=== PATIENT | male | born 1970 | race African-American/Black ===

== ENCOUNTER 2024-10-31 08:43 | Day surgery (SDC) | payer OTHER, SELFPAY ==
[2024-10-29 13:42] VITALS: BMI 27.5
[2024-10-29 14:00] LABS: Hematocrit 41.9 % (39.0-52.0); Hemoglobin 14.1 g/dL (13.0-18.0); Mean Corp Hgb Conc. 33.7 g/dL (33.0-37.0); Mean Corpuscular Volume 88.2 fL (80.0-94.0); Nucleated Red Blood Cells % 0 % (-); Platelet Count 323 10^3/uL (130-400); Red Cell Dist. Width 11.9 % (11.5-14.5)
[2024-10-29 14:16] LABS: ALT (SGPT) 30 U/L (0-50); AST (SGOT) 18 U/L (17-59); Albumin 4.6 g/dl (3.5-5.0); Alkaline Phosphatase 86 U/L (38-126); Blood Urea Nitrogen 16 mg/dl (9-20); Calcium 9.7 mg/dl (8.4-10.2); Carbon Dioxide 26 mmol/L (22-30); Chloride 104 mmol/L (98-107); Estimated Creatinine Clearance 75 ml/min; Glucose 243 mg/dl (70-99); Potassium 4.4 mmol/L (3.5-5.1); Sodium 138 mmol/L (135-145); Total Protein 8.2 g/dl (6.3-8.2); eGFR > 60.00
[2024-10-31] VITALS (15 sets, daily range): BP systolic 106–123; BP diastolic 62–86
[2024-10-31 09:29] LABS: Glucose - Point of Care 265 mg/dl (70-99)
--- NOTE | 2024-10-31 10:34 | W.DS.TRANS ---
DC Summary - [facility]
-
Discharge Instructions:
Discharge Diagnosis/Procedures Cardiac catheterization.
Diet Low Fat,Low Cholesterol,2 Gram Sodium
Activity No restrictions
Driving Restrictions No driving for 24 hours
Bathing Restrictions None
Instructions:
Stand-Alone Forms: DC Instructions- Cath/EP Lab
Changes to Home Medications: Yes
Discharge Medications:
DC Medications w/original date entered in [employer]
dulaglutide 0.75 mg/0.5 mL subcutaneous pen injector (Trulicity) 0.75 mg SC QWEEK 10/25/24
metformin 500 mg tablet 500 mg PO BID 10/25/24
aspirin 81 mg chewable tablet 81 mg PO DAILY 10/31/24
atorvastatin 40 mg tablet (Lipitor) 40 mg PO HS #30 tabs 10/31/24
cholecalciferol (vitamin D3) 10 mcg (400 unit) capsule (Vitamin D3) 10 mcg PO DAILY 10/31/24
glyburide 5 mg tablet 5 mg PO BID 10/31/24
metoprolol succinate 25 mg capsule sprinkle, ext. release 24 hr 25 mg PO DAILY #30 ea 10/31/24
nitroglycerin 0.4 mg sublingual tablet 0.4 mg sublingual [id number] PRN chest pain or SBP > 150 mmHg #25 tabs 10/31/24
valsartan 320 mg-hydrochlorothiazide 12.5 mg tablet 1 tab PO DAILY 10/31/24
Home Medication Changes
Please stop simvastatin.
Please start atorvastatin 40 mg daily.
Please start metoprolol succinate 25 mg daily.
Please start nitroglycerin 0.4 mg sublingual (under the tongue) every 5 minutes as needed for chest pain. If pain remains after 3rd dose, call 911.
Pending Results: No
--- NOTE | 2024-10-31 11:02 | ITS.CL.CATH ---
[facility] - Catheterization
Cardiac Catheterization
Procedure Report:
CARDIAC CATHETERIZATION REPORT
Date of Procedure: 10/31/2024
Referring: Charli Wilkerson D.O.
INDICATION: Abnormal EKG, abnormal stress test.
PROCEDURE:
1. Left heart catheterization
2. Coronary angiography.
A total of 21 minutes of procedural/moderate sedation was utilized. An independent medical customer service representative was present to assist with and help manage the patient's level of consciousness and physiologic status.
ACCESS:
1. 6 Malag[place] right radial artery using a modified Seldinger technique.
CATHETERS:
1. 5 Malagasy JR4.
2. 5 Malagasy JL 3.5.
HEMODYNAMIC DATA
Weight (kg): 91.8
AO (s/d/x, mmHg): 120/82/100
LV (s/x mmHg): 120/4
LEFT VENTRICULOGRAPHY: Not performed.
CORONARY ANGIOGRAPHY
Dominance: Codominant.
Left Main: Normal size, bifurcating vessel. There is no coronary artery disease.
LAD: Normal size vessel giving rise to several small diagonals. There is no coronary artery disease.
Ramus: Congenitally absent.
Circumflex: Normal size, codominant vessel giving rise to 3 obtuse marginals and a partial LPDA. OM1 is a small vessel. There is a 60-70% lesion in the proximal margin of OM 2. There is a 50% lesion in the ostium of OM 3. There is a 70% lesion
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 The LPDA is supplied by left to left collaterals from the second obtuse marginal.
RCA: Normal size, codominant vessel. The vessel is chronically totally occluded in its proximal margin. The distal RCA/partial RPDA is supplied by collaterals from the septal perforators and apical LAD.
INTERVENTION(S)
None.
Closure Device: Vascular band.
Radiation (mGy): 276.97
DAP (cm2.Gy): 16.2688
Fluoroscopy time (minutes): 1.9
CONCLUSIONS
1. Codominant circulation with a 60-70% lesion in the proximal margin of OM 2, 50% lesion in the ostium of OM 3, 70% lesion in the distal circumflex followed by a [employer] as the circumflex enters the partial LPDA and a chronic total occlusion of the
codominant RCA. The partial LPDA supplied by collaterals from OM 2. The partial RPDA/distal RCA is supplied by collaterals from the septal perforators and apical LAD.
2. Normal filling pressures (LVEDP = 4 mmHg at 91.8 kg).
RECOMMENDATIONS:
1. Expectant management after cardiac catheterization via right radial approach.
2. Limited weight bearing on the right wrist for one week.
3. Continue secondary prevention with aspirin 81 mg daily indefinitely.
4. Aggressive secondary prevention. Discontinue simvastatin. Start atorvastatin 40 mg daily. Goal LDL <55.
5. Start metoprolol succinate 25 mg daily for suppression of PVCs.
6. 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
revascularization.
7. If the patient were to develop symptoms or falloff in heart function, we could consider PCI of the 2nd and 3rd obtuse marginal.
8. Sublingual nitroglycerin prescription has been given for treatment of any chest pain that does develop.
9. Stable for outpatient follow-up.
Copy to: Syed ChiangO., Nilesh Isabel D.O.
Jayson Ely, DO, FACC, FACP
== END 2024-10-31 13:30 | disposition home or self-care (01) ==
LOC: CATH 08:43
PROVIDERS: ATTENDING PHYSICIAN Internal Medicine Cardiovascular Disease; FAMILY PHYSICIAN Family Medicine; OTHER PHYSICIAN Student in an Organized Health Care Education/Training Program
DX: I25.10 Atherosclerotic heart disease of native coronary artery without angina pectoris (principal); E78.5 Hyperlipidemia, unspecified; I10 Essential (primary) hypertension; E11.40 Type 2 diabetes mellitus with diabetic neuropathy, unspecified; E11.319 Type 2 diabetes mellitus with unspecified diabetic retinopathy without macular edema; E55.9 Vitamin D deficiency, unspecified; Z79.85 Long-term (current) use of injectable non-insulin antidiabetic drugs; Z79.84 Long term (current) use of oral hypoglycemic drugs; Z82.49 Family history of ischemic heart disease and other diseases of the circulatory system
CPT/HCPCS: 99152; 36415; 80053; 82962; 85025; 93005; 93458; C1894; Q9967